=== PATIENT | female | born 1965 | race Caucasian/White ===

== ENCOUNTER 2016-11-20 17:04 | Observation (INO) | payer OTHER ==
[~2016-11-20] VITALS: Ht 170.2 cm; Wt 112.3 kg
--- NOTE | ~2016-11-20 | CST ---
Cardiac Perfusion Imaging Demographics Patient Name HERMILO ONEILL Gender Female S Patient Number [id number] Race Visit Number [id number] Ethnicity [employer] ID Room Number 425 Accession Number [id number] Height 67 inches Date of 1965 Weight 247 pounds Age 51 year(s) BSA 2.21 m Referring Physician Venkat Motley BMI 38.69 kg/m Interpreting [facility] Date of study 11/21/2016 Physician Evin Sorenson MD Supervising MD/MLP Venkat Motley NM Technologist Tavarse Lee MD HAND TUBE WINDER Ordering Physician Venkat Motley Stress MD maintenance department technician Stress ECG Reading Venkat Motley Nurse Teresa Smith Physician MD Debbie Sorenson MD The procedure was explained in detail to the patient. Risks, complications and alternative treatments were reviewed. Written consent was obtained. Medications Reviewed with Patient prior to Procedure. Procedure Procedure Type: Nuclear Stress Test:Pharmacological, Lexiscan Procedure Start time: 11/21/2016 08:00 Indications: Hypertension, Chest pain, chronic kidney disease and Family history of coronary artery disease. Risk Factors The patient risk factors include:former tobacco use, treated hypertension, insulin treated diabetes mellitus and ( years not smokin). Conclusions Summary Perfusion Images: The overall quality of the study is good. Left ventricular cavity is noted to be normal on the stress and rest studies. There is no evidence of abnormal lung activity. The right ventricle is not visualized and cannot be assessed. Stress SPECT images demonstrate homogenous tracer distribution throughout the myocardium. Rest SPECT images demonstrate homogenous tracer distribution throughout the myocardium. Gated SPECT imaging reveals normal myocardial thickening and wall motion. The left ventricular ejection fraction was calculated to be 67%. Impression ECG portion of stress test is clinically negative for ischemia by diagnostic criteria. Myocardial perfusion imaging is normal. Overall left ventricular systolic function was normal without regional wall motion abnormalities. There are no previous studies for comparison. Stress Protocols Resting HR:94 bpm Resting BP:128/98 mmHg Stress Protocol:Pharmacologic Predicted HR: 170 bpm HR response: Normal Test duration: 06:00 min Reason for termination:Infusion complete ECG Findings Normal sinus rhythm Arrhythmias No rhythm abnormalities Symptoms Slight short of breath Complications Procedure complication: None. Stress Interpretation Normal, await myoview Imaging Results Summed scores - Summed stress score: 0 - Summed rest score: 0 - Summed difference score: 0 Stress ejection Ejection fraction:66 % EDV :86 ml ESV :29 ml Stroke volume :57 ml LV mass :114 gr Imaging Protocols Rest Stress Isotope:Tc99m Myoview IV Isotope: Tc99m Myoview IV Isotope dose:10.5 mCi Isotope dose:30.6 mCi Date:11/21/2016 06:50 Date:11/21/2016 07:59 Technique: SPECT Technique: Gated Supine SPECT Supine IV remains in place after procedure. Scan Time:30 minutes post injection Scan Time:15-30 minutes post injection Procedure Medications - Regadenoson (Lexiscan) 0.4 mg IV over 10-15 sec. I.V. 0.4 mg. Medications administered per verbal order and read back to physician prior to administration. Medical History Admission Data Admission date: 11/20/2016 Admission Time: 18:35 Hospital Status: Inpatient. Signatures
[2016-11-23] MEDS ORDERED: VIMPAT50 MG PO (08:17)
[2016-11-23] MEDS ORDERED: KEPPRA750 MG PO (08:17)
[2016-11-23] MEDS ORDERED: RISPERDAL0.25 MG PO (08:18)
[2016-11-23] MEDS ORDERED: FETZIMA120 MG PO (08:18)
[2016-11-23] MEDS ORDERED: NEURONTIN DPS100 MG PO (08:18)
[2016-11-23] MEDS ORDERED: ZESTRIL DPS10 MG PO (08:18)
[2016-11-23] MEDS ORDERED: MINIPRESS DPS1 MG PO (08:18)
[2016-11-23] MEDS ORDERED: REQUIP DPS2 MG PO (08:18)
[2016-11-23] MEDS ORDERED: NYSTATIN CREAM15 GM TP (08:19)
[2016-11-23] MEDS ORDERED: PROTONIX40 MG PO (08:19)
[2016-11-23] MEDS ORDERED: NOVOLOG100 UNIT/2 SQ (08:20)
[2016-11-23] MEDS ORDERED: GLUCOPHAGE-DPS500 MG PO (08:21)
[2016-11-23] MEDS ORDERED: LIPITOR40 MG PO (08:21)
[2016-11-23] MEDS ORDERED: NOVOLIN-N,100 UNITS/ SQ (08:21)
--- NOTE | 2016-11-25 08:28 | HP ---
ADMIT: 11/20/2016 RM/LOC: [address] [facility] MR#: [id number] [facility] [address] [place], [place] [address] [place] [address] History and Physical SEX: F AGE: 51 : 1965 DATE OF SERVICE: CHIEF COMPLAINT: Chest pain. HISTORY OF PRESENT ILLNESS: Ms. Akhtar is a very pleasant 51-year-old female. She has poorly-controlled diabetes, chronic kidney disease, hypertension, and epilepsy, who reports really for last two weeks she has not been feeling well. Notes that about 2 weeks ago she started feeling like she was having a lot of back muscle strain. Reports that she felt like she had maybe been weightlifting, it was very tight. She would have her rub her back. She reports that this really did not seem to help a lot. She also had noticed that she was getting some shortness of breath with exertion. She reports that today specifically while she was at hobby lobby, she was walking around the store, felt pretty short of breath, started experiencing, kind of some sharp constant chest pain. Reports that it was kind of her upper epigastrium and lower chest. She has had a history of GERD in the past, this felt kind of like that, but it was much stronger. Reports she was very short of breath and thought she was going to pass out. She came into the ER and reports she has been feeling better ever since. She reports she has not had any new lower extremity edema. She has not had any diarrhea or constipation. She has noted that she has been battling some yeast infections here recently. PAST MEDICAL HISTORY: Significant for: 1. Diabetes, she thinks it is poorly controlled. 2. Hypertension. 3. History of seizure disorder following an episode of shingles that she was told kind of invaded around her brain. 4. Chronic kidney disease. 5. Depression. SOCIAL HISTORY: She is . 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 She does not smoke now, but she did smoke from age 19 to 26. She reports she does not use any significant alcohol. FAMILY HISTORY: Her father did have heart disease, she thinks in his early 60s as well as some diabetes. ALLERGIES: NO KNOWN MEDICAL ALLERGIES. MEDICATION LIST: Is incomplete, I believe, 1. Lantus 30 units subcu at bedtime. 2. Vimpat at bedtime. 3. Keppra twice daily. 4. Risperidone at bedtime. 5. Gabapentin three tabs at bedtime. 6. Lisinopril at bedtime. 7. Prazosin at bedtime. 8. Ropinirole two tabs at bedtime. 9. Some antidepressant at bedtime. ADMIT: 11/20/2016 RM/LOC: [address] [facility] MR#: [id number] [address] [address] [facility] [address] [address] History and Physical SEX: F AGE: 51 : 1965 REVIEW OF SYSTEMS: Obtained, was otherwise as noted above. PHYSICAL EXAMINATION: GENERAL: She seems dyspneic. She is in no apparent distress. HEENT: Pupils are equal, round, and reactive. Oropharynx, dry mucous membranes. NECK: Supple. HEART: Tachycardic rate with a regular rhythm without a murmur. LUNGS: Diminished breath sounds secondary to body habitus. ABDOMEN: Obese, soft. Bowel sounds are present. EXTREMITIES: Have no evidence of edema, but diminished distal pulses. SKIN: Cool and dry. NEUROLOGICAL: She neurologically moves her upper and lower extremities. ASSESSMENT AND PLAN: 1. Chest pain with shortness of breath. At this time, certainly concerning in a patient with multiple risk factors. We will go ahead and do serial cardiac enzymes. We will plan to evaluate in the morning with a stress test. If this is negative, we will treat for gastroesophageal reflux disease. 2. Diabetes mellitus, sounds as if this is somewhat poorly controlled. We will check an A1c in the morning. We will adjust her medications accordingly. 3. Chronic kidney disease. We will give her some gentle hydration overnight with her profound hyperglycemia. 4. Unknown lipid status. We will check her lipids in the morning. Otherwise, we will plan to continue her home medications for her seizure disorder. Otherwise, I did spend 35 minutes in the admission and evaluation of this patient. Socorro Robledo MD/ katie JOB #: [id number] CC: Socorro Robledo, Attending Physician Socorro Robledo, Family Physician
--- NOTE | 2016-11-26 15:36 | ER ---
ADMIT: 11/20/2016 RM/LOC: 425 [facility] MR#: [id number] [address] [address] [place] [address] Emergency Room Report SEX: F AGE: 51 : 1965 DATE: 11/20/2016 This is a 51-year-old white female coming with chest pain on and off for maybe the last couple of days. CBC, chemistry, troponin are negative. She does have diabetes, somewhat uncontrolled at 423. At this time, nitroglycerin took her pain away. We put an inch of paste on her. I spoke with Dr. Robledo, she will admit as a rule out. CONDITION ON DISCHARGE: Fair. Alexandro Zafar MD/ katie JOB #: [id number] CC: Socorro Robledo MD, Attending Physician Socorro Robledo MD, Family Physician
== END 2016-11-21 16:11 | disposition home or self-care (01) ==
LOC: ER 17:04 → 4PCU 18:35
PROVIDERS: ADMIT Internal Medicine
DX: R07.9 Chest pain, unspecified (principal); E11.22 Type 2 diabetes mellitus with diabetic chronic kidney disease; I12.0 Hypertensive chronic kidney disease with stage 5 chronic kidney disease or end stage renal disease; N18.6 End stage renal disease; F32.9 Major depressive disorder, single episode, unspecified; Z79.899 Other long term (current) drug therapy